=== PATIENT | male | born 1990 | race Caucasian/White ===

== ENCOUNTER 2017-03-26 04:02 | Emergency (ER) | payer OTHER ==
[~2017-03-26] VITALS: Ht 182.9 cm; Wt 90.7 kg
[2017-03-26 04:02] VITALS: BP_SYST 133
[2017-03-26] MEDS ORDERED: DIPH-TET-PERTUS Vaccine 0.5 ML VIAL (ADACEL) I.M. ONE (05:00)
[2017-03-26 05:47] VITALS: BP_SYST 130
== END 2017-03-26 05:47 ==
LOC: SED 04:02
DX: S51.012A Laceration without foreign body of left elbow, initial encounter (principal); V89.2XXA Person injured in unspecified motor-vehicle accident, traffic, initial encounter; Y93.89 Activity, other specified; Y92.488 Other paved roadways as the place of occurrence of the external cause; Y99.8 Other external cause status
CPT/HCPCS: 90715; 99284